=== PATIENT | female | born 1965 | race Caucasian/White ===

== ENCOUNTER → 2018-05-23 | Outpatient (CLI) | payer OTHER ==
[~2018-05-23] MED LIST: ACET325; ALBU90OI; ALPR.5; ALPR.5 PO; ATENOLOL-? DOSE; AZIT250 PO; BUDE200IP; CEPH500 PO; CIPR250 PO; CLIN300 PO; CLOBETTC TP; CLON.1 PO; CLOT1TC TOP; CODGUAEL PO; CYCL10 PO; DICY20 PO; EFFEXOR; ESCI10; FLUC150A PO; HYDACE10B; HYDACE5 PO; HYDGUAL120 PO; IBUP600 PO; IBUP800 PO; LEVFLO500 PO; LISHYD1012 PO; LISI10; LORA1 PO; META800 PO; METR500 PO; MICO100S VAG; NAPR500 PO; NEOCOLOTSU OT; NEOPOLHCSU OT; NYST100TC TOP; OFLO.3OTSO AU; PHENA200 PO; PROACE100 PO; PROCODE120 PO; RXCEPH500 PO; RXNEOPOLHC AD; RXPROACE PO; TRAM50; TRAM50 PO; TRIA80TC TOP; VENL75; ZESTORETIC
== END | disposition home or self-care (01) ==
LOC: LAB SHORT 14:43 → LAB EV 14:43
DX: H60.91 Unspecified otitis externa, right ear (principal)
CPT/HCPCS: 87070; 87205

== ENCOUNTER → 2023-11-12 | Outpatient (CLI) | payer OTHER | LOC: LAB SHORT 19:10 → LAB 19:10 | DX: L02.224 Furuncle of groin (principal) | CPT/HCPCS: 87070; 87077; 87147; 87186; 87205 ==